=== PATIENT | female | born 1980 | race Caucasian/White ===

== ENCOUNTER 2017-03-14 19:23 | Day surgery (SDC) | payer OTHER ==
[2017-03-14] MEDS ORDERED: GLUCAGON,HUMAN RECOMBINANT 1 MG VIAL IVP ONE (19:39)
[2017-03-14] MEDS ORDERED: LORazepam 2 MG/ML INJ IVP ONE (19:39)
[2017-03-14] MEDS ORDERED: fentaNYL 100 MCG/2 ML INJ IVP ONE (20:39)
--- NOTE | 2017-03-14 20:48 | EDPHY ---
H & P Stated Complaint: has probiotic ill stuck in throat; happening frequently - Personal History LMP (Females 10-55): Now Current Tetanus/Diphtheria Vaccine: Yes - Medical/Surgical History Hx Asthma: No Hx Chronic Respiratory Disease: No Hx Diabetes: No Hx Cardiac Disease: No Hx Renal Disease: No Hx Cirrhosis: No Hx Alcoholism: No Hx HIV/AIDS: No Hx Splenectomy or Spleen Trauma: No Other PMH: PMHx: denies. PSHx: 2 c sections, D&C - Social History Smoking Status: Never smoked Time Seen by Provider: 03/14/17 19:34 HPI/ROS: Chief complaint: Probiotics stuck in throughout History of present illness: This is a 37-year-old female who presents to the emergency department concerned she has a probiotic stuck in her throat. Patient took the probiotic about an hour prior to arrival. Since then she feels has been stuck. She cannot eat. She cannot drink. She cannot even swallow her saliva. She has had increasing problems with things getting stuck in her throat for the last few weeks. She has never had on prior. She denies cough or trouble breathing. She denies other associated signs or symptoms. ( Noah Gutierrez) - Physical Exam Exam: General Appearance: Alert, nontoxic Eyes: Pupils equal and round no injection. ENT: Oropharynx unremarkable. Patient is drooling, she cannot control oral secretions. There is no stridor. Respiratory: Chest is nontender, lungs are clear to auscultation. Cardiac: regular rate and rhythm. Gastrointestinal: Abdomen is soft and nontender, no masses, bowel sounds normal. Musculoskeletal: Neck is supple and nontender. Extremities have full range of motion and are nontender. Skin: No rashes or lesions. Neurologic: Alert and oriented x4. Strength and sensation intact and symmetrical. (Noah Gutierrez) Constitutional: Initial Vital Signs Temperature (C) 36.8 C 03/14/17 19:25 Heart Rate 78 03/14/17 19:25 Respiratory Rate 16 03/14/17 19:25 Blood Pressure 102/75 03/14/17 19:25 O2 Sat (%) 98 03/14/17 19:25 O2 Delivery Mode Room Air Allergies/Adverse Reactions: No Known Allergies Allergy (Verified 02/15/12 06:33) Home Medications: Medication Instructions Recorded NK [No Known Home Meds] 03/14/17 Medical Decision Making ED Course/Re-evaluation: Patient seen under the supervision of my primary supervising physician Dr. Radha Winters. Patient presents to the emergency department with something stuck in her throat. She is having no respiratory distress. However she cannot control her oral secretions or drink or eat. She is treated with glucagon, Ativan and fentanyl. She has attempted to drink carbonated drinks. Symptoms persist. I have consulted with GI, Dr. Elizabeth. She will come see the patient in the emergency room but will wait a few hours as patient ate right before the pill got stuck, an hour prior to getting here. Care of patient is turned over to Tammy Springer [employer]. (Noah Gutierrez) 2230-patient has not passed the foreign body in her throat. Dr. Elizabeth aware of patients status. 6 hours post meal will be at 1230am which is when Clara will scope the patient unless this passes. Pt is aware of plan. 0000- Report passed on to Dr. Laureano at the end of my shift. Pt awaiting Dr. Elizabeth to take her to the OR for esophogeal FB extraction at 1230. (Tammy Springer) 12 30 a.m. I discussed the case with Dr. Elizabeth. She will come take the patient to the GI lab. 1:00 a.m. the patient is gone to the GI lab. (Carlos Enrique Laureano) Differential Diagnosis: Included but not limited to esophageal impaction, aspiration (Noah Gutierrez) - Data Points Medications Given: Discontinued Medications Fentanyl (Sublimaze) 50 mcg IVP EDNOW ONE Stop: 03/14/17 20:40 Last Admin: 03/14/17 20:42 Dose: 50 mcg Glucagon (Glucagen) 1 mg IVP EDNOW ONE Stop: 03/14/17 19:40 Last Admin: 03/14/17 19:52 Dose: 1 mg Lorazepam (Ativan Injection) 1 mg IVP EDNOW ONE Stop: 03/14/17 19:40 Last Admin: 03/14/17 19:52 Dose: 1 mg Departure - Departure Disposition: Home, Routine, Self-Care Clinical Impression: Esophageal obstruction due to food impaction Condition: Good
[2017-03-15 00:46] VITALS: PULSE 76
[2017-03-15] MEDS ORDERED: PROPOFOL 200 MG/20 ML VIAL ONE (01:10)
[2017-03-15] MEDS ORDERED: DEXAMETHASONE 4 MG/ML VIAL ONE (01:11)
[2017-03-15] MEDS ORDERED: SUCCINYLCHOLINE CHLORIDE*ANESTHESIA ONLY*200 MG/10 ML SYR IVP ONE (01:11)
[2017-03-15] MEDS ORDERED: ONDANSETRON 4 MG/2 ML VIAL ONE (01:11)
[2017-03-15] MEDS ORDERED: LIDOCAINE 2% 100 MG/5 ML SYR ONE (01:11)
[2017-03-15] MEDS ORDERED: ROCURONIUM 50 MG/5 ML VIAL ONE (01:11)
--- NOTE | 2017-03-15 01:28 | PDCONSULT ---
Aquatic Scientist Note: 37 yo F for EGD due to pill stuck in throat Healthy, no medical problems No prior personal or family problems with anesthesia NKDA Medications reviewed Airway:MPI TMD 3FB nl dentition FROM CV:nl Pulm: nl Assessment and plan: 37 yo with FB in esophagus for EGD under GETA. Assessment performed before anesthetic but documented later for patient safety and airway protection
[2017-03-15] MEDS ORDERED: PROMETHAZINE HCL 25 MG/ML INJ IVP PRN (01:29)
[2017-03-15] MEDS ORDERED: fentaNYL 100 MCG/2 ML INJ IVP PRN (01:29)
[2017-03-15] MEDS ORDERED: OXYCODONE/APAP 5/325 TAB PO PRN (01:29)
[2017-03-15] MEDS ORDERED: HYDROCODONE/APAP 5/325 TAB PO PRN (01:29)
[2017-03-15] MEDS ORDERED: ACETAMINOPHEN 500 MG TAB PO PRN (01:29)
[2017-03-15] MEDS ORDERED: ONDANSETRON 4 MG/2 ML VIAL IVP PRN (01:29)
[2017-03-15] MEDS ORDERED: NALOXONE HCL 0.4 MG/ML INJ IVP PRN (01:29)
[2017-03-15] MEDS ORDERED: HYDROmorphONE/DILAUDID 1 MG/ML SYR IVP PRN (01:29)
[2017-03-15] MEDS ORDERED: MEPERIDINE 25 MG/ML SYR IVP PRN (01:29)
[2017-03-15] MEDS ORDERED: DEXAMETHASONE 4 MG/ML VIAL IVP PRN (01:29)
--- NOTE | 2017-03-15 01:32 | PDCONSULT ---
Family Specialist Note: Post anesthesia note 37 yo female s/p EGD with foreign body removal HD stable and similar to preop Pulm stable and similar to preop PONV controlled Pain controlled Mildly sleepy, able to participate in eval No anesthesia related complications Doing well
[2017-03-15 01:56] VITALS: TEMP 98.2
[2017-03-15 01:57] VITALS: O2SAT 93
[2017-03-15 02:17] VITALS: BP 102/71; RESP 31
--- NOTE | 2017-03-15 06:31 | GCON ---
[f rep st] CONSULTATION DATE OF CONSULTATION: 03/15/2017 REFERRING PHYSICIAN: Carlos Enrique Laureano MD CHIEF COMPLAINT: Dysphagia. HISTORY OF PRESENT ILLNESS: I am asked to see this patient in consultation by Dr. Laureano for chief complaint of dysphagia. Patient is a 37-year-old, who first noted onset of dysphagia around [facility] er of 2015 while at a holiday libertarian, ate a date that likely had a pit in it, felt it lodge, needed t o regurgitate it up, then had a few other episodes with pills and some issues of feeling of dysphagi a with solid food. No reflux symptoms. This evening after eating she took a large probiotic pill a nd felt it lodge in her throat, and has been unable to swallow saliva. Was seen in the emergency ro om, given glucagon and Ativan without improvement. It has been now over 6 hours since patient has e aten. She does point to feeling of a foreign body high in her throat. ALLERGIES: No known allergies. CURRENT MEDICATIONS: None. PAST MEDICAL HISTORY: Negative. Patient's last menstrual period was this weekend. REVIEW OF SYSTEMS: I performed a complete review of systems, which is negative, except for pertinen t positives and negatives noted above in HPI. PHYSICAL EXAM: VITAL SIGNS: Afebrile at 36.8, BP 100/73, pulse 78. CONSTITUTIONAL: Alert and patrica ented. EYES: Nonicteric. OROPHARYNX: I do not see a foreign body. CARDIOVASCULAR: Regular rate , rhythm. CHEST: Clear to auscultation. GI: Positive bowel sounds. Soft, nontender. NEUROLOGIC : Grossly nonfocal. SKIN: No lesions. LABORATORY DATA: No laboratory data. ASSESSMENT: Patient with dysphagia and several episodes of food or foreign body impaction, although generally has been able to dislodge. This time it has persisted, now unable to handle her own sali va. PLAN: Recommend urgent endoscopy for foreign body removal. However, my concern in this situation i s that this may be in her vallecula which can be difficult endoscopically. If I am not able to visu magalys or assess the foreign body, may need to consider additional help with ENT. Also, consider und erlying esophageal abnormality such as stricture or EoE. /[id number]/MODL
--- NOTE | 2017-03-15 06:36 | GPN ---
[f rep st] PROCEDURE NOTE DATE OF PROCEDURE: 03/15/2017 PROCEDURE PERFORMED: Esophagogastroscopy with foreign body removal. INSTRUMENT USED: Olympus gastroscope. MEDICINES GIVEN: Patient was given general anesthesia by the anesthesiologist. INDICATIONS: Patient is a 37-year-old who presents with acute foreign body and intermittent dysphagia for at least the last 8 months. She is unable to swallow her own saliva. She feels the foreign body is high in her throat; however, her airway is not compromised. Prior to the procedure, exam was performed, including auscultation of the heart and lungs within normal limits. Patient's mental status was appropriate. Procedure was explained, including risks of bleeding, perforation, aspiration, or inability to remove the foreign body, and she gave her informed consent. FINDINGS: Patient was given general anesthetic and intubated and then placed in the left lateral decubitus position. The instrument was inserted through the bite block into the esophagus and a very high esophagus at approximately 25 cm, a foreign body was identified, consistent with history of swallowed pill. This was removed in piecemeal fashion using a Murillo Net and biopsy forceps until the foreign body could be cleared completely. Once the foreign body was removed , a stricture was identified with overlying inflammation. I was unable to pass the scope past the stricture but distally the esophagus had no retained foreign body that could be seen. I suspect that she may have eosinophilic esophagitis but difficult to know given the degree of inflammation. The area was rinsed. I saw no laceration or perforation. No bleeding. Scope was removed from the patient who tolerated the procedure well. Time spent was approximately 45 minutes. ASSESSMENT: 1. Foreign body with swallowed probiotic pill, removed endoscopically. 2. Underlying upper esophageal stricture which is quite narrowed; unable to pass the diagnostic scope. Dilation not done today due to degree of inflammation, possibly eosinophilic esophagitis. PLAN: Will have patient do clear liquids for 12 hours, then advance diet slowly. Recommend repeat upper endoscopy with dilation within the next 3-4 weeks after this has a chance to heal. I have asked patient to avoid large pills. /[id number]/MODL MTDD
== END 2017-03-15 02:15 | disposition home or self-care (01) ==
LOC: FSGY 03-15 00:48
PROVIDERS: ATTEND Internal Medicine Gastroenterology
PROC: 0DC18ZZ Extirpation of Matter from Upper Esophagus, Via Natural or Artificial Opening Endoscopic (ICD-10-PCS; principal; 2017-03-15 00:50)
DX: T18.198A Other foreign object in esophagus causing other injury, initial encounter (principal); R13.12 Dysphagia, oropharyngeal phase
CPT/HCPCS: 96374; J0330; J1100; J1610; J2001; J2060; J2405; J2704; J3010

== ENCOUNTER 2017-05-03 06:24 | Day surgery (SDC) | payer OTHER ==
[2017-05-03] MEDS ORDERED: LR 1,000 ML IV ONE (06:53)
[2017-05-03] MEDS ORDERED: LIDOCAINE 1% 2 ML INJ ID PRN (06:53)
--- NOTE | 2017-05-03 07:30 | PDANEPAE ---
ANE Past Medical History - Cardiovascular History Hx Hypertension: No Hx Arrhythmias: No Hx Chest Pain: No Hx Coronary Artery / Peripheral Vascular Disease: No Hx CHF / Valvular Disease: No Hx Palpitations: No - Pulmonary History Hx COPD: No Hx Asthma/Reactive Airway Disease: No Hx Recent Upper Respiratory Infection: No Hx Oxygen in Use at Home: No Hx Sleep Apnea: No Sleep Apnea Screening Result - Last Documented: Negative - Neurologic History Hx Cerebrovascular Accident: No Hx Seizures: No Hx Dementia: No - Endocrine History Hx Diabetes: No - Renal History Hx Renal Disorders: No - Liver History Hx Hepatic Disorders: No - Neurological & Psychiatric Hx Hx Neurological and Psychiatric Disorders: No - Cancer History Hx Cancer: No - Congenital Disorder History Hx Congenital Disorders: No - GI History Hx Gastrointestinal Disorders: Yes Gastrointestinal History Comment: difficulty swallowing."protein constricted my esophagus-probiotic pill was removed by endoscopy in 04-02". other choking episodes prior. - Other Health History Other Health History: none - Chronic Pain History Chronic Pain: No - Surgical History Prior Surgeries: C sections x - 2011,2013. D and C 2010 ANE Review of Systems Review of Systems: - Exercise capacity METS (RN): 5 METS ANE Patient History - Allergies Allergies/Adverse Reactions: No Known Allergies Allergy (Verified 05/02/17 16:34) - Home Medications Home Medications: NK [No Known Home Meds] 03/14/17 [Last Taken Unknown] - NPO status NPO Since - Liquids (Date): 05/02/17 NPO Since - Liquids (Time): 19:00 NPO Since - Solids (Date): 05/02/17 NPO Since - Solids (Time): 19:00 - Smoking Hx Smoking Status: Never smoked ANE Labs/Vital Signs - Vital Signs Blood Pressure: 98/71 Heart Rate: 60 Respiratory Rate: 16 O2 Sat (%): 94 Height: 160.02 cm Weight: 56.699 kg ANE Physical Exam - Airway Neck exam: FROM Mallampati Score: Class 2 Mouth exam: normal dental/mouth exam - Pulmonary Pulmonary: no respiratory distress - Cardiovascular Cardiovascular: regular rate and rhythym - ASA Status ASA Status: I
[2017-05-03] MEDS ORDERED: LIDOCAINE 2% 100 MG/5 ML SYR ONE (07:34)
[2017-05-03] MEDS ORDERED: MIDAZOLAM 2 MG/2 ML VIAL ONE (07:34)
[2017-05-03] MEDS ORDERED: PROPOFOL/EMULSION 500 MG/50 ML BOTTLE IV ONE (07:34)
[2017-05-03] MEDS ORDERED: ALBUTEROL 3 ML DEYVIAL IH PRN (08:07)
[2017-05-03] MEDS ORDERED: NALOXONE HCL 0.4 MG/ML INJ IVP PRN (08:07)
[2017-05-03] MEDS ORDERED: ONDANSETRON 4 MG/2 ML VIAL IVP PRN (08:07)
--- NOTE | 2017-05-03 08:07 | POSTANESTH ---
Post Anesthetic Evaluation Cardiovascular Status: Similar to Pre-Op Cond Respiratory Status: Similar to Pre-op Cond. Level of Consciousness/Mental Status: Mildly Sleepy, Arousable Pain Control: Adequate, Prn Tx Ordered Nausea/Vomiting Control: Adequate, Prn Tx Ordered Complications Possibly Related to Anesthesia: None Noted
--- NOTE | 2017-05-03 08:09 | GIREPORT ---
[facility] - Endoscopy Department Patient Name: Cami Purdy Procedure Date: 05/03/2017 7:34 AM Patient Type: Outpatient Attending MD/ ER Physician: Yonatan Mcginnis MD Procedure: Upper GI endoscopy Indications: Dysphagia, Stenosis of the esophagus Providers: Yonatan Mcginnis MD Medicines: Sedation Administered by an Anesthesia Professional Complications: No immediate complications. Description of Procedure: After obtaining informed consent, the endoscope was passed under direct vision. Throughout the procedure, the patient's blood pressure, pulse, and oxygen saturations were monitored continuously. The Endoscope was intro duced through the mouth, and advanced to the second part of duodenum. The [facility] er GI endoscopy was accomplished without difficulty. The patient tolerated th e procedure well. Findings: The middle third of the esophagus was normal. Biopsies were taken with a cold forceps for histology. One moderate benign-appearing, intrinsic stenosis was found in the uppe r third of the esophagus. And was traversed. A guidewire was placed and t he scope was withdrawn. Dilation was performed with a Savary dilator with no resistance at 45 Fr and 48 Fr. Estimated blood loss was minimal. Diffuse mild inflammation characterized by congestion (edema) and eryth felice was found in the entire examined stomach. Biopsies were taken with a co ld forceps for histology. The examined duodenum was normal. Estimated Blood Loss: Estimated blood loss: none. Post Op Diagnosis: - Normal middle third of esophagus. Biopsied. - Benign-appearing esophageal stenosis. Dilated. - Gastritis. Biopsied. - Normal examined duodenum. Recommendation: - Written discharge instructions were provided to the patient. - The signs and symptoms of potential delayed complications were discus sed with the patient. - Patient has a contact number available for emergencies. - Return to normal activities tomorrow. - Await pathology results. - Repeat upper endoscopy in 4 weeks for retreatment. - The findings and recommendations were discussed with the patient and their spouse. Attending Participation: I personally performed the entire procedure. ,Electronically Sigened by Yonatan Mcginnis MD> Yonatan Mcginnis MD 05/03/2017 8:08:26 AM Number of Addenda: 0 Note Initiated On: 05/03/2017 7:34 AM [email or web address]
[2017-05-03 10:34] VITALS: BP 122/68; PULSE 72; RESP 14; TEMP 97.7; O2SAT 97
== END 2017-05-03 11:04 | disposition home or self-care (01) ==
LOC: FSGY 06:24
PROVIDERS: ATTEND Internal Medicine Gastroenterology
DX: R13.14 Dysphagia, pharyngoesophageal phase (principal); K22.2 Esophageal obstruction; K29.60 Other gastritis without bleeding
CPT/HCPCS: J2001; J2250; J2704

== ENCOUNTER → 2018-10-29 | Outpatient (CLI) | payer OTHER | LOC: BMCIMAGING 08:27 | PROVIDERS: ATTEND Family Medicine | DX: Z12.31 Encounter for screening mammogram for malignant neoplasm of breast (principal); Z80.3 Family history of malignant neoplasm of breast ==